=== PATIENT | female | born 1955 | race African-American/Black ===

== ENCOUNTER 2017-06-18 13:32 | Emergency (ER) | payer MEDICAID ==
[~2017-06-18] VITALS: Ht 162.6 cm; Wt 90.0 kg
[2017-06-18 13:33] VITALS: BP 146/82
[2017-06-18] MEDS ORDERED: ACETAMINOPHEN 500MG TABLET PO ONE (14:15)
== END 2017-06-18 14:20 | disposition home or self-care (01) ==
LOC: ER 14:12
DX: S39.011A Strain of muscle, fascia and tendon of abdomen, initial encounter (principal); S29.011A Strain of muscle and tendon of front wall of thorax, initial encounter; R06.02 Shortness of breath; I10 Essential (primary) hypertension; E11.9 Type 2 diabetes mellitus without complications; V43.52XA Car driver injured in collision with other type car in traffic accident, initial encounter; Y93.89 Activity, other specified; Y92.89 Other specified places as the place of occurrence of the external cause; Y99.8 Other external cause status
CPT/HCPCS: 99283

== ENCOUNTER 2024-03-14 05:45 | Emergency (ER) | payer MEDICARE, MEDICAID ==
[~2024-03-14] VITALS: Ht 165.1 cm; Wt 77.0 kg
[2024-03-14 06:19] VITALS: BP 152/85; PULSE 96; RESP 16; O2SAT 97
[2024-03-14] MEDS ORDERED: ACETAMINOPHEN 325MG TABLET PO ONE (06:30)
[2024-03-14 08:55] VITALS: TEMP 98.3
[2024-03-14] MEDS: ACETAMINOPHEN 325MG TABLET PO NR (08:55)
== END 2024-03-14 09:25 | disposition home or self-care (01) ==
LOC: ER 05:45
DX: S09.90XA Unspecified injury of head, initial encounter (principal); M25.521 Pain in right elbow; M54.9 Dorsalgia, unspecified; M25.562 Pain in left knee; M25.561 Pain in right knee; I10 Essential (primary) hypertension; E11.9 Type 2 diabetes mellitus without complications; F31.9 Bipolar disorder, unspecified; W01.0XXA Fall on same level from slipping, tripping and stumbling without subsequent striking against object, initial encounter; Y93.89 Activity, other specified; Y92.89 Other specified places as the place of occurrence of the external cause; Y99.8 Other external cause status
CPT/HCPCS: 72128; 72131; 73080; 73562; 99284